=== PATIENT | male | born 1975 | race Caucasian/White ===

== ENCOUNTER 2017-08-08 10:02 | Emergency (ER) | payer MEDICAID, OTHER ==
[2017-08-08] MEDS: LORAZEPAM 1 MG TAB PO (11:20)
[2017-08-08 12:17] LABS: TROPONIN-I 0.011 ng/ml (0.000-0.120)
== END 2017-08-08 13:14 | disposition home or self-care (01) ==
LOC: E/R 10:02
DX: R07.9 Chest pain, unspecified (principal); F41.9 Anxiety disorder, unspecified; R40.2142 Coma scale, eyes open, spontaneous, at arrival to emergency department; R40.2362 Coma scale, best motor response, obeys commands, at arrival to emergency department
CPT/HCPCS: 84484; 93005; 99284-25